=== PATIENT | male | born 1995 | race Two or more races ===

== ENCOUNTER 2024-06-29 11:02 | Emergency (ER) | payer BC, MEDICAID ==
[~2024-06-29] VITALS: Ht 175.3 cm; Wt 74.9 kg
[2024-06-29 11:11] VITALS: BP 118/61; PULSE 91; RESP 16; TEMP 98.8; O2SAT 96
[2024-06-29] MEDS ORDERED: PRED20TA5 PO (11:36)
[2024-06-29] MEDS: DEXAMETHASONE 10 MG/ML VIAL IM ONE (11:40)
[2024-06-29 11:47] VITALS: BP 114/66; PULSE 91; RESP 16; TEMP 98.8; O2SAT 96
== END 2024-06-29 11:46 | disposition home or self-care (01) ==
LOC: MED 11:02
DX: T63.441A Toxic effect of venom of bees, accidental (unintentional), initial encounter (principal); R22.32 Localized swelling, mass and lump, left upper limb; Z79.899 Other long term (current) drug therapy; Y92.89 Other specified places as the place of occurrence of the external cause
CPT/HCPCS: 96372; 99283; J1100